=== PATIENT | female | born 1950 | race Caucasian/White ===

== ENCOUNTER 2020-07-31 11:57 | Day surgery (SDC) | payer BC ==
[2020-07-27 10:57] VITALS: BMI 32.9
[~2020-07-31 11:57] MED LIST: Dexamethasone 20 MG/5 ML VIAL ONE; Lidocaine 1% PF 5 ML VIAL ONE; Ondansetron PF 4 MG/2 ML Vial ONE; PROPOFOL 200 MG/20 ML VIAL ONE
[2020-07-31] MEDS ORDERED: Betamet Acet/Betamet Na Ph 30 MG/5 ML VIAL ONE (12:57)
[2020-07-31] MEDS ORDERED: Bupivacaine PF 0.5% 30 ML VIAL ONE (12:57)
[2020-07-31] MEDS ORDERED: Bacitracin Zinc Ointment 30 gm TUBE ONE (12:57)
[2020-07-31] MEDS ORDERED: Fentanyl 100 MCG/2 ML VIAL ONE (14:04)
[2020-07-31] MEDS ORDERED: Ketorolac Tromethamine 30 MG/ML VIAL ONE (15:19)
--- NOTE | 2020-07-31 20:43 | OP ---
DATE OF PROCEDURE: 07/31/2020 PREOPERATIVE DIAGNOSIS: Left carpal tunnel syndrome. POSTOPERATIVE DIAGNOSIS: Left carpal tunnel syndrome. PROCEDURE PERFORMED: Left carpal tunnel release. TOURNIQUET TIME: 70 minutes. BLOOD LOSS: 2 mL or less. INJECTABLES: 1. 20 mL of 0.5% Marcaine. 2. 3 mL of Celestone drip technique. FINDINGS: Tight transverse carpal ligament with early flattening without hourglass formation and minimal stippling in the center of the median nerve in the carpal canal. No tenosynovitis. ANESTHESIA: General LMA technique augmented with 20 mL of 0.5% Marcaine, no epinephrine, all given pre-surgery. DESCRIPTION OF PROCEDURE: After successful general LMA technique, the limb was prepped and draped. The patient had the outlined incision which was in line with the ring finger from medial to lateral and as far distal as Dotson's cardinal line as far proximal as 5 mm proximal to the volar wrist flexion crease. We then exsanguinated the limb, inflated the tourniquet to 250 mmHg pressure. The patient had the incision entered with a sharp knife blade, #15, and we dissected down to the transverse carpal ligament. At a point just slightly ulnar to the center palmaris longus, we then entered the transverse carpal ligament from its midportion proximally. Doing this, the patient had noted flattening of the median nerve on the carpal canal. We then used a [place] blade in combination with tenotomy scissors to open the transverse carpal canal from the midportion distally and sparing any damage to rami or the primary motor branch which was free. We then elevated the skin from the transverse carpal ligament from midportion proximally. We used the same combination of instruments. We then placed 3 mL Celestone over the nerve, allowed to sit for 1 minute and then deflated the tourniquet. We exsanguinated, closed the wound with interrupted 4-0 nylon in a simple pattern. The patient left the operating room without evidence of anesthetic or operative complication. Job ID: [id number]
== END 2020-07-31 17:00 | disposition home or self-care (01) ==
LOC: SDC 11:57
PROVIDERS: ATTEND Orthopaedic Surgery Hand Surgery
PROC: 01N50ZZ Release Median Nerve, Open Approach (ICD-10-PCS; principal; 2020-07-31)
DX: G56.02 Carpal tunnel syndrome, left upper limb (principal); K21.9 Gastro-esophageal reflux disease without esophagitis; I10 Essential (primary) hypertension; E78.00 Pure hypercholesterolemia, unspecified; E11.9 Type 2 diabetes mellitus without complications; G47.00 Insomnia, unspecified; M19.90 Unspecified osteoarthritis, unspecified site; E78.5 Hyperlipidemia, unspecified; Z79.84 Long term (current) use of oral hypoglycemic drugs; Z79.899 Other long term (current) drug therapy; Z88.2 Allergy status to sulfonamides
CPT/HCPCS: J0690; J0702; J1100; J1885; J2405; J2704; J3010; J3490; S0020

== ENCOUNTER 2021-12-03 13:12 | Outpatient (CLI) | payer BC | END 2021-12-03 13:13 | disposition home or self-care (01) | LOC: BICMAMMO 13:12 | PROVIDERS: ATTEND Family Medicine | DX: Z12.31 Encounter for screening mammogram for malignant neoplasm of breast (principal); Z80.3 Family history of malignant neoplasm of breast; Z91.89 Other specified personal risk factors, not elsewhere classified | CPT/HCPCS: 77063; 77067 ==